=== PATIENT | female | born 1930 | race Caucasian/White ===

== ENCOUNTER 2016-07-06 09:13 | Emergency (ER) | payer MEDICARE, OTHER ==
[~2016-07-06] VITALS: Ht 154.9 cm; Wt 45.0 kg
[~2016-07-06 09:13] MED LIST: ATEN-100 PO; CARD120C4 PO; DEPA125T PO; DOCU1CAP39 PO; NU-I150C PO; SERT-132 PO; SINE10100 PO
[2016-07-06 09:29] VITALS: BP 183/79; PULSE 79; RESP 20; TEMP 97.8; O2SAT 100
[2016-07-06] MEDS ORDERED: CARBIDOPA/LEVODOPA 10 MG/100 MG TAB PO ONE (09:30)
[2016-07-06] MEDS ORDERED: ATENOLOL 25 MG TAB PO ONE (09:30)
[2016-07-06] MEDS ORDERED: SODIUM CHLORIDE 0.9% FLUSH 5 ML FLUSH IVF PRN (09:30)
[2016-07-06 09:32] VITALS: O2SAT 100
--- NOTE | 2016-07-06 09:35 | PD ---
HPI Chief Complaint: fall Time Seen by Provider: 09:22 Travel History International Travel<30 days: No Contact w/Intl Traveler<30days: No History of Present Illness HPI 86-year-old woman who is sent over from or [facility], after she was reportedly found on the ground presumed of falling. I spoke with [facility] staff via the phone. They report they found her on the floor. They report she did appear to have hit her head on the door knob. She was walking toward the front door. She has a history of Parkinson's disease. She is unable to provide much additional history. EMS reported that nursing staff relates the patient was at her baseline however another resident felt like the patient was not at her baseline. No other reported recent illness or injury. History Past Medical History Narrative Medical Parkinson's disease/paralysis agitans Anemia Hypertension Osteoarthritis Weakness Social History Alcohol Use: No Tobacco Use: No Allergies-Medications (Allergen,Severity, Reaction): Coded Allergies: Aspirin (Verified Allergy, Intermediate, vomit, 07/06/16) Celebrex (Verified Allergy, Intermediate, vomit, 07/06/16) Ibuprofen (Verified Allergy, Intermediate, vomit, 07/06/16) Codeine (Verified Allergy, Mild, headache, 07/06/16) Reported Meds & Prescriptions Reported Meds & Active Scripts Active Reported Tylenol (Acetaminophen) 325 Mg Cap 2 Tab PO Q6H PRN Sertraline (Sertraline HCl) 50 Mg Tab 50 Mg PO DAILY Sertraline (Sertraline HCl) 25 Mg Tab 25 Mg PO DAILY Colace (Docusate Sodium) 100 Mg Cap 100 Mg PO BID Carbidopa-Levodopa 10-100 Mg Tab 1 Tab PO TID Atenolol 25 Mg Tab 12.5 Mg PO DAILY Review of Systems Except as stated in HPI: all other systems reviewed are Neg Physical Exam Narrative GENERAL: Frail 86 year-old woman, increased muscle tone somewhat rigid, speech is difficult to understand, and no apparent distress. SKIN: Warm and dry. HEAD: Normocephalic. No obvious evidence of injury. EYES: Pupils equal and round. No scleral icterus. No injection or drainage. ENT: No nasal bleeding or discharge. Mucous membranes pink and moist. NECK: Neck stiff but no tenderness. CARDIOVASCULAR: Regular rate and rhythm. No murmur appreciated. RESPIRATORY: No accessory muscle use. Clear to auscultation. Breath sounds equal bilaterally. GASTROINTESTINAL: Abdomen soft, non-tender, nondistended. Hepatic and splenic margins not palpable. MUSCULOSKELETAL: Increased muscle tone throughout. There is no obvious deformity or leg shortening. She will say that her left hip hurts but she doesn 't really grimace with range of motion of the hip. There is no obvious pain with compression of the pelvis. She does seem indicated some low back pain as well. There is no obvious tenderness ecchymosis bruising stump ulcer other evidence of injury. NEUROLOGICAL: Awake and alert. Speech is moderate, very low, very difficult to understand. She does not really follow commands or answer questions. Data Data Last Documented VS Vital Signs Date Time Temp Pulse Resp B/P Pulse Ox O2 Delivery O2 Flow Rate FiO2 07/06/16 09:32 100 Room Air 07/06/16 09:29 97.8 79 20 183/79 Orders Electrocardiogram (07/06/16 09:22) Complete Blood Count With Diff (07/06/16 09:22) Comprehensive Metabolic Panel (07/06/16 09:22) Urinalysis - C+S If Indicated (07/06/16 09:22) Hip, Uni(Ap&Lat) W Ap Pelvis (07/06/16 09:22) Iv Access Insert/Monitor (07/06/16 09:22) Oximetry (07/06/16 09:22) Ecg Monitoring (07/06/16 09:22) Sodium Chloride 0.9% Flush (Ns Flush) (07/06/16 09:30) Femur (Ap & Lat/2vws) (07/06/16 ) Spine, Lumbar - Ltd (Ap & Lat) (07/06/16 ) Ct Brain W/O Iv Contrast(Rout) (07/06/16 ) Cath For Specimen (07/06/16 09:22) Carbidopa-Levodopa 10-100 Mg (Sinemet 10 (07/06/16 09:30) Carbidopa-Levodopa 10-100 Mg (Sinemet 10 (07/06/16 14:00) Atenolol (Tenormin) (07/06/16 09:30) Labs Laboratory Tests Test 07/06/16 07/06/16 09:20 10:00 White Blood Count 6.5 TH/MM3 Red Blood Count 4.09 MIL/MM3 Hemoglobin 13.3 GM/DL Hematocrit 39.4 % Mean Corpuscular Volume 96.3 FL Mean Corpuscular Hemoglobin 32.6 PG Mean Corpuscular Hemoglobin 33.9 % Concent Red Cell Distribution Width 13.6 % Platelet Count 189 TH/MM3 Mean Platelet Volume 9.7 FL Neutrophils (%) (Auto) 71.9 % Lymphocytes (%) (Auto) 16.6 % Monocytes (%) (Auto) 9.1 % Eosinophils (%) (Auto) 1.7 % Basophils (%) (Auto) 0.7 % Neutrophils # (Auto) 4.7 TH/MM3 Lymphocytes # (Auto) 1.1 TH/MM3 Monocytes # (Auto) 0.6 TH/MM3 Eosinophils # (Auto) 0.1 TH/MM3 Basophils # (Auto) 0.0 TH/MM3 CBC Comment DIFF FINAL Differential Comment Sodium Level 141 MEQ/L Potassium Level 4.0 MEQ/L Chloride Level 106 MEQ/L Carbon Dioxide Level 26.6 MEQ/L Anion Gap 8 MEQ/L Blood Urea Nitrogen 18 MG/DL Creatinine 0.64 MG/DL Estimat Glomerular Filtration 88 ML/MIN Rate Random Glucose 109 MG/DL Calcium Level 8.9 MG/DL Total Bilirubin 0.6 MG/DL Aspartate Amino Transf 19 U/L (AST/SGOT) Alanine Aminotransferase 15 U/L (ALT/SGPT) Alkaline Phosphatase 103 U/L Total Protein 7.3 GM/DL Albumin 3.7 GM/DL Urine Color YELLOW Urine Turbidity CLEAR Urine pH 5.5 Urine Specific [place] 1.019 Urine Protein NEG mg/dL Urine Glucose (UA) NEG mg/dL Urine Ketones TRACE mg/dL Urine Occult Blood TRACE Urine Nitrite NEG Urine Bilirubin NEG Urine Urobilinogen LESS THAN 2.0 MG/DL Urine Leukocyte Esterase TRACE Urine RBC LESS THAN 1 /hpf Urine WBC 3 /hpf Urine Squamous Epithelial <1 /hpf Cells Urine Transitional Epithelial <1 /hpf Cells Urine Mucus FEW /lpf Microscopic Urinalysis Comment CATH-CULT NOT IND MDM Medical Decision Making Medical Screen Exam Complete: Yes Emergency Medical Condition: Yes Interpretation(s) My review of EKG: Normal sinus rhythm at a rate of 75, normal axis, normal intervals, no definite evidence of acute ischemia. X-ray: Pelvis left hip and left femur are all negative Lumbar spine: Under mineral eyes, no definite fracture. LABS: CBC is unremarkable CMP is unremarkable UA negative CT head: Mild posterior scalp soft tissue swelling and a high convexity. No fracture or acute intracranial abnormality. Stable chronic changes. Differential Diagnosis Fall, head injury, hip injury, infection, weakness, other Narrative Course Medical decision making INITIAL: 86-year-old woman presents to the emergency department after reported fall at her nursing facility. She has Parkinson's disease and is pretty stiff. She didn't get her medicines this morning. We'll check CT head, x-ray of the hip and pelvis, we'll check labs. I spoke with nursing staff. I also called her son that is her power of commonwealth attorney, Hiral Cole, and left a message. Reassess. FINAL: Workup negative. Patient safe to return to nursing facility. Diagnosis Primary Impression: Fall Patient Instructions: General Instructions Additional Instructions: Continue current medications. Follow up with her primary doctor in the next 2-4 days. Disposition: 01 DISCHARGE HOME Condition: Stable Brady Bowling MD Jul 06, 2016 09:35
[2016-07-06 09:50] LABS: AUTOMATED NEUTROPHIL # 4.7 TH/MM3 (1.8-7.7); BASOPHIL % 0.7 % (0.0-2.0); EOSINOPHIL # 0.1 TH/MM3 (0-0.4); EOSINOPHIL % 1.7 % (0.0-4.0); HEMATOCRIT 39.4 % (35.0-46.0); HEMO FLAGS DIFF FINAL; LYMPH % 16.6 % (9.0-44.0); LYMPHOCYTE # 1.1 TH/MM3 (1.0-4.8); MEAN CELL VOLUME 96.3 FL (80.0-100.0); MEAN CORPUSCULAR HEMOGLOBIN 32.6 PG (27.0-34.0); MEAN CORPUSCULAR HGB CONC 33.9 % (32.0-36.0); MONO % 9.1 % (0.0-8.0); NEUT % 71.9 % (16.0-70.0); PLATELET COUNT 189 TH/MM3 (150-450); RED BLOOD COUNT 4.09 MIL/MM3 (4.00-5.30); RED CELL DISTRIBUTION WIDTH 13.6 % (11.6-17.2); WHITE BLOOD COUNT 6.5 TH/MM3 (4.0-11.0)
--- NOTE | 2016-07-06 10:04 | RADRPT ---
EXAM DATE/TIME: 07/06/2016 09:36 [facility] COMPARISON: No previous studies available for comparison. INDICATIONS : Patient fell today. Complains of lower back pain. MEDICAL HISTORY : None. SURGICAL HISTORY : None. ENCOUNTER: Initial ACUITY: 1 day PAIN SCORE: Non-responsive. LOCATION: L-Spine FINDINGS: 3 views of the lumbar spine demonstrate 5 [id number] lumbar vertebral bodies. The bones are unde rmineralized. No fracture or compression deformity is visualized. There is no anterolisthesis or retr olisthesis. End plate osteophytes are present at multiple levels area there is facet hypertrophy at L 4-L5. Pelvic bones demonstrate no acute finding. There has been prior hip bipolar arthroplasty. There is mo derate atherosclerotic disease of the aorta. CONCLUSION: 1. The bones are undermineralized and there are degenerative changes throughout the lumbar spine. How ever, no acute finding is identified. 2. Moderate atherosclerotic disease. Rory Singh MD on July 06, 2016 at 10:01 Board Certified Radiologist. This report was verified electronically.
--- NOTE | 2016-07-06 10:12 | RADRPT ---
EXAM DATE/TIME: 07/06/2016 09:36 [facility] COMPARISON: No previous studies available for comparison. INDICATIONS : Patient fell today. Complains of left hip pain. MEDICAL HISTORY : None. SURGICAL HISTORY : Left hip total arthroplasty. ENCOUNTER: Initial ACUITY: 1 day PAIN SCORE: Non-responsive. LOCATION: Left Hip FINDINGS: 3 views of the pelvis and left hip joint demonstrate bipolar arthroplasty hardware in place without f inding to indicate hardware failure or loosening. No fracture or dislocation is identified. No soft t issue abnormality is identified. There is calcification of the left common iliac artery. CONCLUSION: No acute abnormality is identified. Rory Singh MD on July 06, 2016 at 10:10 Board Certified Radiologist. This report was verified electronically.
[2016-07-06] MEDS ORDERED: ATEN25TA PO (10:13)
[2016-07-06] MEDS ORDERED: COLA100C3 PO (10:13)
[2016-07-06] MEDS ORDERED: SERT-132 PO (10:13)
[2016-07-06] MEDS ORDERED: ACET1CAP18 PO (10:13)
[2016-07-06] MEDS ORDERED: SERT25TA83 PO (10:13)
[2016-07-06] MEDS ORDERED: CARB10TA2 PO (10:13)
--- NOTE | 2016-07-06 10:13 | RADRPT ---
EXAM DATE/TIME: 07/06/2016 09:37 [facility] COMPARISON: No previous studies available for comparison. INDICATIONS : Patient fell today. Complains of left femur pain. MEDICAL HISTORY : None. SURGICAL HISTORY : Left total hip arthroplasty. ENCOUNTER: Initial ACUITY: 1 day PAIN SCORE: Non-responsive. LOCATION: Left Femur FINDINGS: 4 views of the left femur demonstrate no fracture or dislocation. The bones are undermineralized. The re is mild osteoarthritis at the knee joint. Left hip bipolar arthroplasty hardware is present and de monstrates no finding to indicate loosening or failure. No soft tissue abnormality is seen. There is arterial vascular calcification. CONCLUSION: No acute abnormality is identified. Rory Singh MD on July 06, 2016 at 10:11 Board Certified Radiologist. This report was verified electronically.
[2016-07-06 10:17] LABS: ALKALINE PHOSPHATASE 103 U/L (45-117); ALT (GPT) 15 U/L (10-53); ANION GAP 8 MEQ/L (5-15); AST (GOT) 19 U/L (15-37); BICARBONATE 26.6 MEQ/L (21.0-32.0); BLOOD UREA NITROGEN 18 MG/DL (7-18); CHLORIDE 106 MEQ/L (98-107); GLOMERULAR FILTRATION RATE 88 ML/MIN (>89); SODIUM (NA) 141 MEQ/L (136-145); TOTAL BILIRUBIN ADULT 0.6 MG/DL (0.2-1.0)
[2016-07-06 10:32] LABS: BLOOD, URINE TRACE (NEG); GLUCOSE,URINE NEG (NEG); KETONE, URINE TRACE mg/dL (NEG); MUCUS URINE FEW /lpf (OCC); NITRITE,URINE NEG (NEG); PH, URINE 5.5 (5.0-8.5); SQUAMOUS EPITHELIAL CELL URINE <1 /hpf (0-5); TRANSITIONAL EPI CELLS, URINE <1 /hpf; URINE COLOR YELLOW (YELLW/STRAW)
[2016-07-06 10:33] LABS: COMMENT (UR) CATH-CULT NOT IND; CULTURE IF INDICATED CATH CULTURE NOT IND
--- NOTE | 2016-07-06 10:52 | RADRPT ---
EXAM DATE/TIME: 07/06/2016 10:28 [facility] COMPARISON: CT BRAIN W/O CONTRAST, February 12, 2015, 17:16. INDICATIONS : Trauma; fall. RADIATION DOSE: 43.59 CTDIvol (mGy) MEDICAL HISTORY : Parkinson's. Hypertension. SURGICAL HISTORY : None. ENCOUNTER: Initial ACUITY: 1 day PAIN SCALE: 3/10 LOCATION: cranial TECHNIQUE: Multiple contiguous axial images were obtained of the head. Using automated exposure control and adj ustment of the mA and/or kV according to patient size, radiation dose was kept as low as reasonably a chievable to obtain optimal diagnostic quality images. FINDINGS: CEREBRUM: There is mild cerebral atrophy. There is mild periventricular white matter low attenuation No eviden ce of midline shift, mass lesion, hemorrhage or acute infarction. No extra-axial fluid collections a re seen. POSTERIOR FOSSA: The cerebellum and brainstem are intact. The 4th ventricle is midline. The cerebellopontine angle i s unremarkable. EXTRACRANIAL: There is mild posterior scalp soft tissue swelling at the high convexity. SKULL: Stable sclerotic area in the left frontal bone is present. No evidence of skull fracture. CONCLUSION: 1. Mild posterior scalp soft tissue swelling in the high convexity. No fracture or acute intracranial abnormality is identified. 2. Stable chronic change includes generalized atrophy and periventricular white matter low attenuatio n characteristic of chronic microvascular ischemia. Rory Singh MD on July 06, 2016 at 10:48 Board Certified Radiologist. This report was verified electronically.
[2016-07-06 12:23] VITALS: BP 97/54; PULSE 60; RESP 20; O2SAT 98
[2016-07-06 12:55] VITALS: BP 102/65
[2016-07-06] MEDS ORDERED: CARBIDOPA/LEVODOPA 10 MG/100 MG TAB PO SCH (14:00)
--- NOTE | 2016-07-06 19:13 | EKG ---
Date Performed: 07/06/2016 Time Performed: 10:22:43 PTAGE: 86 years EKG: Sinus rhythm NONSPECIFIC T-WAVE ABNORMALITY Since previous tracing, no significant change noted BORDERLINE ECG PREVIOUS TRACING : 07/31/2015 07.16 DOCTOR: Dl Murrell Interpretating Date/Time 07/06/2016 19:12:12
== END 2016-07-06 12:54 | disposition home or self-care (01) ==
LOC: NEPE 09:13
DX: M25.552 Pain in left hip (principal); M54.5 Low back pain; R22.0 Localized swelling, mass and lump, head; R94.31 Abnormal electrocardiogram [ECG] [EKG]; I10 Essential (primary) hypertension; G20 Parkinson's disease; Z86.2 Personal history of diseases of the blood and blood-forming organs and certain disorders involving the immune mechanism; Z87.39 Personal history of other diseases of the musculoskeletal system and connective tissue; W19.XXXA Unspecified fall, initial encounter; Y92.129 Unspecified place in nursing home as the place of occurrence of the external cause
CPT/HCPCS: 70450; 72100; 73502; 73552; 80053; 81001; 85025; 93005; 99285; P9612